=== PATIENT | female | born 2000 | race Caucasian/White ===

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

== ENCOUNTER 2021-06-11 15:00 | Emergency (ER) | payer OTHER ==
[~2021-06-11] VITALS: Ht 160 cm; Wt 50.0 kg
[~2021-06-11 15:00] MED LIST changes: +PRENATA3 PO
[2021-06-11] MEDS ORDERED: VIORELE PO (17:16)
[2021-06-11] MEDS ORDERED: ZPAK PO (17:24)
[2021-06-11 17:35] VITALS: BP 110/56
--- NOTE | 2021-06-12 08:18 | NUR ---
PT IS NOT A CANDIDATE TO RECEIVE THE MONOCLONAL ANTIBODY FOR COVID. NO PAST MEDICAL HISTORY, BMI <35, DOES NOT MEET THE CRITERIA.
== END 2021-06-11 17:35 | disposition home or self-care (01) | DRG 179 ==
LOC: ED 15:00
DX: U07.1 COVID-19 (principal)